=== PATIENT | female | born 1950 | race Caucasian/White ===

== ENCOUNTER → 2017-07-07 | Outpatient (CLI) | payer MEDICARE ==
--- NOTE | 2017-07-08 11:27 | MM ---
Reason for exam: screening (asymptomatic). Last mammogram was performed 1 year and 9 months ago. History: Patient is postmenopausal. Physical Findings: A clinical breast exam by your physician is recommended on an annual basis and results should be correlated with mammographic findings. MG 3D Screening Mammo W/Cad Bilateral CC and MLO view(s) were taken. Prior study comparison: October 16, 2015, bilateral MG screening mammo w CAD. July 25, 2014, bilateral MG screening mammo w CAD. The breast tissue is heterogeneously dense. This may lower the sensitivity of mammography. No suspicious abnormality. No significant changes when compared with prior studies. ASSESSMENT: Negative, BI-RAD 1 RECOMMENDATION: Routine screening mammogram of both breasts in 1 year.
== END | disposition home or self-care (01) ==
LOC: RADMAMWWP 10:34
PROVIDERS: ATTEND Internal Medicine
DX: Z12.31 Encounter for screening mammogram for malignant neoplasm of breast (principal)
CPT/HCPCS: 77063; G0202

== ENCOUNTER → 2018-07-13 | Outpatient (CLI) | payer MEDICARE ==
--- NOTE | 2018-07-15 14:31 | MM ---
Reason for exam: screening (asymptomatic). Last mammogram was performed 1 year ago. History: Patient is postmenopausal. Physical Findings: A clinical breast exam by your physician is recommended on an annual basis and results should be correlated with mammographic findings. MG 3D Screening Mammo W/Cad Bilateral CC and MLO view(s) were taken. Prior study comparison: July 07, 2017, bilateral MG 3d screening mammo w/cad. October 16, 2015, bilateral MG screening mammo w CAD. The breast tissue is heterogeneously dense. This may lower the sensitivity of mammography. No significant changes when compared with prior studies. ASSESSMENT: Negative, BI-RAD 1 RECOMMENDATION: Routine screening mammogram of both breasts in 1 year.
== END | disposition home or self-care (01) ==
LOC: RADMAMWWP 09:46
PROVIDERS: ATTEND Internal Medicine
DX: Z12.31 Encounter for screening mammogram for malignant neoplasm of breast (principal)
CPT/HCPCS: 77063; 77067

== ENCOUNTER 2019-02-15 07:57 | Day surgery (SDC) | payer MEDICARE ==
[2019-02-09 10:31] VITALS: BMI 30.4
[~2019-02-15 07:57] MED LIST: CYCLOPENTOLATE 1% OPHTH SOLN 2 ML BTL OP ONE; LACTATED RINGERS 1,000 ML IV SCH; MOXIFLOXACIN HCL 0.5% DROPS 3 ML BTL OP ONE; PHENYLEPHRINE 2.5% OPHTH DRP 2ML OP NR; TETRACAINE 0.5% OPHTH (PF) DROPS 4 ML BTL OP ONE; TIMOLOL 0.5% OPHTH DROPS 5 ML BTL OP ONE
[2019-02-15 09:31] VITALS: RESP 16; TEMP 98.2
[2019-02-15] MEDS ORDERED: LIDOCAINE 1% 20 ML VIAL (10MG/ML) FOR IV START SQ ONE (09:37)
[2019-02-15] MEDS ORDERED: fentaNYL (PF) 50 MCG/ML 2 ML AMP ONE (10:05)
[2019-02-15] MEDS ORDERED: MIDAZOLAM 2 MG/2 ML VIAL ONE (10:05)
[2019-02-15] MEDS ORDERED: DUOVISC KIT (GREEN BOX) INTRAOCULA ONE (10:12)
[2019-02-15] MEDS ORDERED: BALANCED SALT IRRIG SOLN COMB2 15 ML IRRIG.SOLN INTRAOCULA ONE (10:12)
[2019-02-15] MEDS ORDERED: TRYPAN BLUE 0.06% SYRINGE 0.5 ML SYRINGE INTRAOCULA ONE (10:12)
[2019-02-15] MEDS ORDERED: LIDOCAINE 1% (PF) 10MG/ML VIAL SQ ONE (10:13)
[2019-02-15] MEDS ORDERED: EPINEPHrine (PF) 0.3 ML in BALANCED SALT IRRIG SOLN COMB2 500 ML IRRIGATION ONE (10:13)
--- NOTE | 2019-02-15 10:48 | P.OP ---
Date of Procedure: 02/15/19 Preoperative Diagnosis: NS & CS & PSC & POAG moderate stage Postoperative Diagnosis: same Procedure(s) Performed: PIOL , OS & iStent implant OS Implants: PCB00 20.50 & iStent [id number] Anesthesia: MAC Surgeon: Jose G Aparicio Estimated Blood Loss (ml): 1 Pathology: none sent Condition: stable Disposition: same day Indications for Procedure: blurry vision and glaucoma Operative Findings: No complications
[2019-02-15 10:50] VITALS: PULSE 69
[2019-02-15 11:24] VITALS: BP 134/72
--- NOTE | 2019-02-15 13:11 | OP ---
OPERATIVE REPORT DATE OF SURGERY: 02/15/2019. PROCEDURE: Phacoemulsification of cataract and intraocular lens implant of the left eye with an eye stent implantation of the left eye. PREOPERATIVE DIAGNOSES: Nuclear sclerosis, cortical sclerosis, posterior subcapsular cataract, and primary open- angle glaucoma, moderate stage. POSTOPERATIVE DIAGNOSES: Nuclear sclerosis, cortical sclerosis, posterior subcapsular cataract, and primary open- angle glaucoma, moderate stage. SURGEON: Dr. Jose G Aparicio. ANESTHESIA: Topical. ESTIMATED BLOOD LOSS: Less than 5 mL. SPECIMEN TAKEN: None. NARRATIVE: After obtaining the appropriate consent, the patient was brought to the operating room. There she was placed under cardiac monitoring, prepped and draped in the usual sterile manner. She was approached from her left temporal side. At the 5 o'clock position, an MVR blade was used to create a paracentesis port. Through this opening 1% Xylocaine MPF 50/50 mix with balanced salt solution was injected into the anterior chamber. This was followed by placement of a small air bubble and then tri arce blue which was allowed to stain the anterior chamber tissues for approximately 1 minute. This was then irrigated away and Viscoat was used to stabilize the anterior chamber. At the 9 o'clock position, a 2.5 mm keratome was used to create a self-sealing corneal flap incision. The patient was then asked to rotate her head approximately 45 degrees to her right and maintain her gaze in that direction and prism was placed on the patient's eye. Trabecular meshwork was easily identified and an eye stent, device model TTS 100 L was placed across the anterior chamber and imbedded within the trabecular meshwork without difficulty. As expected, a small amount of blood was seen exiting from the snorkel of the device. The patient was then returned to the normal supine position and a cystotome was used to begin a continuous tear capsulorrhexis which was then completed using the Utrata forceps. Hydrodissection and hydrodelineation of the lens was accomplished with balanced salt solution. Phacoemulsification of the lens utilizing phaco chop was accomplished in 11.8 seconds with an EPT of 1.43. Once the lens was removed, Lidocaine MPF was instilled to provide additional anesthesia. This was followed by removal of the remaining cortex under irrigation and aspiration along with careful polishing of the posterior in the capsule vacuum mode. Care was taken to attempt to remove as much of the posterior subcapsular cataract as possible. However, this proved to be difficult at best and there remained a small amount in contact with the posterior capsule. Provisc was then used to stabilize the capsular bag and an YEIMY PCP 00 20.5 diopter posterior chamber intraocular lens was then instilled into the capsular bag without difficulty. The remaining viscoelastic was removed from in and around the lens as well as the anterior chamber. The eye was then brought to normal intraocular pressures through the paracentesis port and the incisions were confirmed watertight after a small amount of stromal hydration. She then received 2 drops of 0.5% timolol followed by 2 drops of moxifloxacin, was then lightly patched and shielded in the usual manner. There were no complications from the procedure. She tolerated the procedure well and was returned to outpatient recovery in good condition. NERI / LO: [id number] /
== END 2019-02-15 11:40 | disposition home or self-care (01) ==
LOC: OR 07:57
PROVIDERS: ATTEND Ophthalmology
DX: H25.813 Combined forms of age-related cataract, bilateral (principal); H35.3131 Nonexudative age-related macular degeneration, bilateral, early dry stage; H18.51 Endothelial corneal dystrophy; H25.042 Posterior subcapsular polar age-related cataract, left eye; H40.1131 Primary open-angle glaucoma, bilateral, mild stage; H52.03 Hypermetropia, bilateral; H52.4 Presbyopia; I10 Essential (primary) hypertension; Z79.899 Other long term (current) drug therapy; Z82.49 Family history of ischemic heart disease and other diseases of the circulatory system; Z83.518 Family history of other specified eye disorder; Z79.82 Long term (current) use of aspirin
CPT/HCPCS: 0191T; 66984

== ENCOUNTER 2019-03-01 07:14 | Day surgery (SDC) | payer MEDICARE ==
[2019-02-24 15:33] VITALS: BMI 30.4
[~2019-03-01 07:14] MED LIST changes: -CYCLOPENTOLATE 1% OPHTH SOLN 2 ML BTL OP ONE; +LIDOCAINE 1% 20 ML VIAL (10MG/ML) FOR IV START INTRADERMA PRN; +ONDANSETRON 4 MG/2 ML VIAL IVP ONE; -PHENYLEPHRINE 2.5% OPHTH DRP 2ML OP NR
[2019-03-01] MEDS: CYCLOPENTOLATE 1% OPHTH SOLN 2 ML BTL OP ONE ×2 (07:55→08:05)
[2019-03-01] MEDS: PHENYLEPHRINE 2.5% OPHTH DRP 2ML OP NR ×3 (08:00→08:16)
[2019-03-01 08:11] VITALS: RESP 16; TEMP 98.1
[2019-03-01] MEDS ORDERED: MIDAZOLAM 2 MG/2 ML VIAL ONE (08:35)
[2019-03-01] MEDS ORDERED: fentaNYL (PF) 50 MCG/ML 2 ML AMP ONE (08:35)
[2019-03-01] MEDS ORDERED: EPINEPHrine (PF) 0.3 ML in BALANCED SALT IRRIG SOLN COMB2 500 ML IRRIGATION ONE (08:53)
[2019-03-01] MEDS ORDERED: DUOVISC KIT (GREEN BOX) INTRAOCULA ONE (08:55)
[2019-03-01] MEDS ORDERED: BALANCED SALT IRRIG SOLN COMB2 15 ML IRRIG.SOLN IRRIGATION ONE (08:55)
[2019-03-01] MEDS ORDERED: TRYPAN BLUE 0.06% SYRINGE 0.5 ML SYRINGE INTRAOCULA ONE (08:56)
[2019-03-01] MEDS ORDERED: LIDOCAINE 1% (PF) 10MG/ML VIAL MISCELLANE ONE (08:56)
--- NOTE | 2019-03-01 09:14 | P.OP ---
Date of Procedure: 03/01/19 Preoperative Diagnosis: NS & CS & PSC & POAG Postoperative Diagnosis: same Procedure(s) Performed: PIOL & iStent implantation right eye Implants: PCB00 20.00 & iStent [id number] Anesthesia: MAC Surgeon: Jose G Aparicio Estimated Blood Loss (ml): 0 Pathology: none sent Condition: stable Disposition: same day Indications for Procedure: blurry vision & glaucoma control Operative Findings: No complications
[2019-03-01 09:47] VITALS: BP 124/80; PULSE 76
--- NOTE | 2019-03-01 18:35 | OP ---
OPERATIVE REPORT DATE OF SURGERY: March 01, 2019. PROCEDURE PERFORMED: Phacoemulsification of cataract and intraocular lens implant of the right eye with eye stent implantation, right eye. PREOPERATIVE DIAGNOSES: Nuclear sclerosis, cortical sclerosis, posterior subcapsular cataract, and primary open- angle glaucoma mild stage. POSTOPERATIVE DIAGNOSES: Nuclear sclerosis, cortical sclerosis, posterior subcapsular cataract, and primary open- angle glaucoma mild stage. SURGEON: Dr. Jose G Aparicio. ANESTHESIA: Topical. ESTIMATED BLOOD LOSS: None. SPECIMEN: Taken none. NARRATIVE: After obtaining the appropriate consent, the patient was brought to the operating room. There she was placed under cardiac monitoring, prepped and draped in the usual sterile manner. She was approached from her right temporal side and at the 11 o'clock position an MVR blade was used to create a paracentesis port. Through this opening, 1% Xylocaine MPF 50/50 mix with balanced salt solution was injected into the anterior chamber. This was followed by coloring the anterior chamber with trypan blue. Once this had stayed in the eye for approximately 1 minute, and was irrigated away, Viscoat was used to stabilize the anterior chamber. At the 9 o'clock position, a 2.5 mm keratome was used to create a self-sealing corneal flap incision in a Langerman's fashion. A small amount of Viscoat was placed on the patient's eye and the patient was asked to rotate her head to the left approximately 45 degrees to maintain a gaze in that particular direction. A gonio prism was placed on the patient's eye and an eye stent model [id number] was passed across the anterior chamber and the stent was implanted within the trabecular meshwork. Once this was accomplished, the patient was rotated to the normal supine position. A cystotome was then used to begin a continuous tear capsulorrhexis which was completed using the Utrata forceps. Hydrodissection and hydrodelineation of the lens was accomplished with balanced salt solution. Phacoemulsification of the lens utilizing phaco chop was accomplished and 15.59 seconds at 10% power. Additional Xylocaine MPF was instilled into the anterior chamber. This was followed by removal of the remaining cortex under irrigation aspiration along with careful polishing of the posterior capsule in capsule vacuum mode. Provisc was then used to stabilize the capsular bag and an YEIMY PCB00 20.0 diopter posterior chamber intraocular lens was then inserted into the capsular bag without difficulty. The remaining viscoelastic was then removed from in and around the intra-ocular lens as well as the anterior chamber under irrigation aspiration. The temporal incision was hydrated slightly with balanced salt solution and the eye was brought to normal intraocular pressures through the paracentesis port. She then received 2 drops of 0.5% timolol followed by 2 drops of moxifloxacin, was then lightly patched and shielded in the usual manner. There were no complications from the procedure. She tolerated the procedure well and returned to outpatient recovery in good condition. MMCESIA / IJN: [id number] / [place]
== END 2019-03-01 09:58 | disposition home or self-care (01) ==
LOC: OR 07:14
PROVIDERS: ATTEND Ophthalmology
DX: H25.11 Age-related nuclear cataract, right eye (principal); H25.011 Cortical age-related cataract, right eye; H40.1131 Primary open-angle glaucoma, bilateral, mild stage; H52.03 Hypermetropia, bilateral; H52.4 Presbyopia; H18.51 Endothelial corneal dystrophy; H35.3131 Nonexudative age-related macular degeneration, bilateral, early dry stage; Z98.42 Cataract extraction status, left eye; I10 Essential (primary) hypertension; Z90.49 Acquired absence of other specified parts of digestive tract; Z90.710 Acquired absence of both cervix and uterus; Z79.899 Other long term (current) drug therapy
CPT/HCPCS: 66984; C1780; C1783; J2250; J0171; J3010; J2001

== ENCOUNTER → 2019-08-08 | Outpatient (CLI) | payer MEDICARE ==
--- NOTE | 2019-08-09 09:38 | MM ---
Reason for exam: screening (asymptomatic). Last mammogram was performed 1 year and 1 month ago. History: Patient is postmenopausal. Physical Findings: A clinical breast exam by your physician is recommended on an annual basis and results should be correlated with mammographic findings. MG 3D Screening Mammo W/Cad Bilateral CC and MLO view(s) were taken. Prior study comparison: July 13, 2018, bilateral MG 3d screening mammo w/cad. July 07, 2017, bilateral MG 3d screening mammo w/cad. The breast tissue is heterogeneously dense. This may lower the sensitivity of mammography. Asymmetric breast tissue right upper quadrant stable from 2017. There is no discrete abnormality. ASSESSMENT: Benign, BI-RAD 2 RECOMMENDATION: Routine screening mammogram of both breasts in 1 year.
== END | disposition home or self-care (01) ==
LOC: RADMAMWWP 06:46
PROVIDERS: ATTEND Internal Medicine
DX: Z12.31 Encounter for screening mammogram for malignant neoplasm of breast (principal)
CPT/HCPCS: 77063; 77067

== ENCOUNTER → 2020-10-09 | Outpatient (CLI) | payer MEDICARE, OTHER ==
--- NOTE | 2020-10-11 09:08 | MM ---
Reason for exam: screening (asymptomatic). Last mammogram was performed 1 year and 2 months ago. History: Patient is postmenopausal. Physical Findings: A clinical breast exam by your physician is recommended on an annual basis and results should be correlated with mammographic findings. MG 3D Screening Mammo W/Cad Bilateral CC and MLO view(s) were taken. Prior study comparison: August 08, 2019, bilateral MG 3d screening mammo w/cad. July 13, 2018, bilateral MG 3d screening mammo w/cad. The breast tissue is heterogeneously dense. This may lower the sensitivity of mammography. There is no discrete abnormality. Benign bilateral axillary lymph nodes redemonstrated. ASSESSMENT: Negative, BI-RAD 1 RECOMMENDATION: Routine screening mammogram of both breasts in 1 year.
== END | disposition home or self-care (01) ==
LOC: RADMAMWWP 07:02
PROVIDERS: ATTEND Family Medicine
DX: Z12.31 Encounter for screening mammogram for malignant neoplasm of breast (principal)
CPT/HCPCS: 77063; 77067

== ENCOUNTER → 2022-01-13 | Outpatient (CLI) | payer MEDICARE, OTHER ==
--- NOTE | 2022-01-13 19:12 | BD ---
EXAMINATION TYPE: Axial Bone Density DATE OF EXAM: 01/13/2022 COMPARISON: 2001 CLINICAL HISTORY: age related osteoporosis Height: 5'4 11/09 Weight: 172 FRAX RISK QUESTIONS: History of Fracture in Adulthood: y Secondary Osteoporosis: RISK FACTORS HISTORY OF: Postmenopausal woman: y MEDICATIONS: Additional Medications: blood pressure Additional History: EXAM MEASUREMENTS: Bone mineral densitometry was performed using the [employer]. Bone mineral density as measured about the Lumbar spine is: ----- L1-L4(G/cm2): 1.292 T Score Values are as follows: ----- L2: 0.5 ----- L3: 1.2 ----- L4:1.4 ----- L1-L4: 1.0 Bone mineral density has: Increased 1.2% since study of: 09/22/2002 Bone mineral density about the R hip (g/cm2): 0.821 Bone mineral density about the L hip (g/cm2): 0.843 T Score values are as follows: -----R Neck: -1.6 -----L Neck: -1.4 -----R Total: -0.8 -----L Total: -0.7 Bone mineral density has: Decreased -4.7% since study of: 09/22/2002 IMPRESSION: Osteopenia (T Score between -2.5 and -1). There is slightly increased risk of fracture and the patient may be considered for treatment. Re-Screen 2-5 years. NOTE: T-SCORE=SD OF THE YOUNG ADULT MEAN.
--- NOTE | 2022-01-15 11:13 | MM ---
Reason for exam: screening (asymptomatic). Last mammogram was performed 1 year and 3 months ago. History: Patient is postmenopausal. Physical Findings: A clinical breast exam by your physician is recommended on an annual basis and results should be correlated with mammographic findings. MG 3D Screening Mammo W/Cad Bilateral CC and MLO view(s) were taken. Prior study comparison: October 09, 2020, bilateral MG 3d screening mammo w/cad. August 08, 2019, bilateral MG 3d screening mammo w/cad. The breast tissue is heterogeneously dense. This may lower the sensitivity of mammography. No significant changes when compared with prior studies. ASSESSMENT: Negative, BI-RAD 1 RECOMMENDATION: Routine screening mammogram of both breasts in 1 year.
== END | disposition home or self-care (01) ==
LOC: RADBDWWP 07:58
PROVIDERS: ATTEND Internal Medicine Geriatric Medicine
DX: Z12.31 Encounter for screening mammogram for malignant neoplasm of breast (principal); M85.89 Other specified disorders of bone density and structure, multiple sites; Z78.0 Asymptomatic menopausal state
CPT/HCPCS: 77063; 77067; 77080

== ENCOUNTER → 2023-02-01 | Outpatient (CLI) | payer MEDICARE ==
--- NOTE | 2023-02-01 10:46 | MM ---
Reason for Exam: Screening (asymptomatic). Last screening mammogram was performed 12 month(s) ago. Patient History: Menarche at age 12. First Full-Term at age 25. Hysterectomy at age 65. Postmenopausal. Risk Values: Mendy 5 year model risk: 2.0%. NCI Lifetime model risk: 4.8%. Prior Study Comparison: 08/08/2019 Bilateral Screening Mammogram, [facility]. 10/09/2020 Bilateral Screening Mammogram, [facility]. 01/13/2022 Bilateral Screening Mammogram, [facility]. Tissue Density: The breast tissue is heterogeneously dense. This may lower the sensitivity of mammography. Findings: Analyzed By CAD. Benign appearing bilateral axillary lymph nodes are redemonstrated. There is no suspicious group of microcalcifications or new suspicious mass in either breast. Overall Assessment: Negative, BI-RAD 1 Management: Screening Mammogram of both breasts in 1 year. A clinical breast exam by your physician is recommended on an annual basis and results should be correlated with mammographic findings. Electronically signed and approved by: Gerald Magaña M.D.
== END | disposition home or self-care (01) ==
LOC: RADMAMWWP 07:51
PROVIDERS: ATTEND Internal Medicine Geriatric Medicine
DX: Z12.31 Encounter for screening mammogram for malignant neoplasm of breast (principal); Z78.0 Asymptomatic menopausal state
CPT/HCPCS: 77063; 77067

== ENCOUNTER 2023-04-19 09:15 | Observation (INO) | payer MEDICARE ==
--- NOTE | 2023-04-19 11:13 | XR ---
EXAMINATION TYPE: XR chest 2V DATE OF EXAM: 04/19/2023 COMPARISON: None INDICATION: Dysrhythmia and abnormal EKG TECHNIQUE: Frontal and lateral views of the chest are obtained. FINDINGS: The heart size is normal. The pulmonary vasculature is normal. The lungs are clear. Focal eventration of the right diaphragm is noted. There is a scoliosis present with the convexity to the right. IMPRESSION: 1. No acute pulmonary process.
--- NOTE | 2023-04-19 11:15 | ED ---
Arrhythmia/Palpitations HPI - General Chief Complaint: Arrhythmia/Palpitations Stated Complaint: abn EKG,Sent by PCP Time Seen by Provider: 04/19/23 10:56 Source: patient Mode of arrival: ambulatory Limitations: no limitations - History of Present Illness Initial Comments: A 2-year-old female with a past medical history significant for hypertension presents to the ED via her PCP due to chief complaint arrhythmia. Patient states that she was her doctor's office for a regular checkup and she notes that EKG performed there was irregular and she was advised to present to the ED for further evaluation. At that time patient states that she felt palpitations and noted that her heart felt like it was beating irregularly. States she notes history of this but notes that it usually goes away on its own. denies chest pain or shortness of breath. Denies recent illness. EKG at her PCPs office showed atrial flutter at a rate of 166. At time of evaluation patient is sinus at 92 bpm. Denies history of hemorrhagic stroke. Denies history of GI bleed. No other complaints - Related Data Home Medications Medication Instructions Recorded Confirmed amLODIPine [Norvasc] 5 mg PO DAILY 02/09/19 04/19/23 Latanoprost [Latanoprost 0.005%] 1 drop LEFT EYE HS 04/19/23 04/19/23 Allergies Allergy/AdvReac Type Severity Reaction Status Date / Time No Known Allergies Allergy Verified 04/19/23 11:38 Review of Systems ROS Statement: Those systems with pertinent positive or pertinent negative responses have been documented in the HPI. ROS Other: All systems not noted in ROS Statement are negative. Past Medical History Past Medical History: Eye Disorder, Hypertension Additional Past Medical History / Comment(s): GLAUCOMA, CATARACTS, MAC DEGENERATION, suzy eye fuchs dystophy History of Any Multi-Drug Resistant Organisms: None Reported Past Surgical History: Bladder Surgery, Cholecystectomy, Hysterectomy, Orthopedic Surgery Additional Past Surgical History / Comment(s): MULT RT FOOT SX, LEFT FOOT SECOND TOE AMPUTATED, Past Anesthesia/Blood Transfusion Reactions: No Reported Reaction Past Psychological History: No Psychological Hx Reported Smoking Status: Never smoker Past Alcohol Use History: Occasional Past Drug Use History: None Reported - Past Family History Mother Family Medical History: No Reported History General Exam Limitations: no limitations Course Vital Signs 04/19/23 09:28 Temperature 98 F Pulse Rate 98 Respiratory 22 Rate Blood Pressure 157/94 O2 Sat by Pulse 96 Oximetry - Reevaluation(s) Reevaluation #1: 04/19/23 11:[address] Hoffmann, who would like the patient admittent to observation with cardiology consult 04/19/23 11:37 Medical Decision Making - Medical Decision Making Was pt. sent in by a medical professional or institution (, PA, METAL [employer]FFER, urgent care, hospital, or [place] health [facility] facility...) When possible be specific @ -PCP Dr. Hoffmann Did you speak to anyone other than the patient for history (EMS, parent, family, police, friend...)? What history was obtained from this source @ -No Did you review nursing and triage notes (agree or disagree)? Why? @ -I reviewed and agree with nursing and triage notes Were old charts reviewed (outside hosp., previous admission, EMS record, old EKG, old radiological studies, urgent care reports/EKG's, [place] health care facility records)? Report findings @ -Old charts reviewed showing history of hypertension glaucoma. Differential Diagnosis (chest pain, altered mental status, abdominal pain women, abdominal pain men, vaginal bleeding, weakness, fever, dyspnea, syncope, headache, dizziness, GI bleed, back pain, seizure, CVA, palpatations, mental health, musculoskeletal)? @ -Differential Chest Pain: Stable Angina, Unstable Angina, STEMI, NSTEMI Aortic Dissection, Pneumothorax, Musculoskeletal, Esophageal Spasm GERD, Cholecystitis, Pancreatitis, Zoster, this is not meant to be an all-inclusive list. EKG interpreted by me (3pts min.). @ -EKG at 9:30 shows a sinus rhythm at [address]pm with no acute ST or T-wave changes. There is an AV block MA interval at 211 ms. QRS 74, QT/QTc 322/382. Repeat EKG at 11:12 shows a sinus rhythm again with first-degree AV block with MA interval at 210 ms. 7 1 bpm, QRS 82, QT/QTc 370/392. X-rays interpreted by me (1pt min.). @ -X-ray showed no acute process CT interpreted by me (1pt min.). @ -None done U/S interpreted by me (1pt. min.). @ -None done What testing was considered but not performed or refused? (CT, X-rays, U/S, labs)? Why? @ -None What meds were considered but not given or refused? Why? @ -None Did you discuss the management of the patient with other professionals (professionals i.e. , PA, METAL BUFFER, lab, RT, psych nurse, social worker clinical, production control specialist, teacher, animal park code enforcement officer, case resource manager)? Give summary @ -Spoke to Dr. Hoffmann who would like the patient admitted to observation with consult to cardiology. Was smoking cessation discussed for >3mins.? @ -No Was critical care preformed (if so, how long)? @ -No Were there social determinants of health that impacted care today? How? (Homelessness, low income, unemployed, alcoholism, drug addiction, transportation, low edu. Level, literacy, decrease access to med. care, snf, rehab)? @ -No Was there de-escalation of care discussed even if they declined (Discuss DNR or withdrawal of care, Hospice)? DNR status @ -No What co-morbidities impacted this encounter? (DM, HTN, Smoking, COPD, CAD, Cancer, CVA, ARF, Chemo, Hep., AIDS, mental health diagnosis, sleep apnea, morbid obesity)? @ -Hypertension Was patient admitted / discharged? Hospital course, mention meds given and route, prescriptions, significant lab abnormalities, going to OR and other pertinent info. @ -Admitted. EKGs as above. CBC unremarkable, other labs pending. Chest x- ray as above. Upon arrival patient converted back into sinus rhythm and did not need rate or rhythm control while in the ED. She was started on heparin. Patient to be admitted to observation with consult to cardiology. Undiagnosed new problem with uncertain prognosis? @ -No Drug Therapy requiring intensive monitoring for toxicity (Heparin, Nitro, Insulin, Cardizem)? @ -Yes, heparin Were any procedures done? @ -No Diagnosis/symptom? @ -Atrial flutter Acute, or Chronic, or Acute on Chronic? @ -Acute Uncomplicated (without systemic symptoms) or Complicated (systemic symptoms)? @ -Uncomplicated Side effects of treatment? @ -No Exacerbation, Progression, or Severe Exacerbation? @ -No Poses a threat to life or bodily function? How? (Chest pain, USA, CT, pneumonia, PE, COPD, DKA, ARF, appy, cholecystitis, CVA, Diverticulitis, Homicidal, Suicidal, threat to staff... and all critical care pts) @ -Yes, atrial flutter - Lab Data Result diagrams: 04/19/23 11:03 04/19/23 11:03 Lab Results 04/19/23 04/19/23 04/19/23 Range/Units 11:03 11:03 11:03 WBC 6.8 (3.8-10.6) k/uL RBC 4.50 (3.80-5.40) m/uL Hgb 13.5 (11.4-16.0) gm/dL Hct 41.0 (34.0-46.0) % MCV 91.1 (80.0-100.0) fL MCH 30.0 (25.0-35.0) pg MCHC 32.9 (31.0-37.0) g/dL RDW 13.9 (11.5-15.5) % Plt Count 236 (150-450) k/uL MPV 7.9 Neutrophils % 74 % Lymphocytes % 18 % Monocytes % 6 % Eosinophils % 1 % Basophils % 0 % Neutrophils # 5.0 (1.3-7.7) k/uL Lymphocytes # 1.2 (1.0-4.8) k/uL Monocytes # 0.4 (0-1.0) k/uL Eosinophils # 0.0 (0-0.7) k/uL Basophils # 0.0 (0-0.2) k/uL PT 10.1 (9.0-12.0) sec INR 1.0 (<1.2) APTT 23.5 (22.0-30.0) sec Sodium 136 L (137-145) mmol/L Potassium 4.7 (3.5-5.1) mmol/L Chloride 104 (98-107) mmol/L Carbon Dioxide 23 (22-30) mmol/L Anion Gap 9 mmol/L BUN 14 (7-17) mg/dL Creatinine 0.50 L (0.52-1.04) mg/dL Est GFR (CKD-EPI)AfAm >90 (>60 ml/min/1.73 sqM) Est GFR (CKD-EPI)NonAf >90 (>60 ml/min/1.73 sqM) Glucose 104 H (74-99) mg/dL Calcium 9.8 (8.4-10.2) mg/dL Magnesium 2.3 (1.6-2.3) mg/dL Total Bilirubin 0.4 (0.2-1.3) mg/dL AST 34 (14-36) U/L ALT 37 H (4-34) U/L Alkaline Phosphatase 224 H (38-126) U/L Troponin I (0.000-0.034) ng/mL Total Protein 7.2 (6.3-8.2) g/dL Albumin 4.2 (3.5-5.0) g/dL TSH 2.310 (0.465-4.680) mIU/L 04/19/23 Range/Units 11:03 WBC (3.8-10.6) k/uL RBC (3.80-5.40) m/uL Hgb (11.4-16.0) gm/dL Hct (34.0-46.0) % MCV (80.0-100.0) fL MCH (25.0-35.0) pg MCHC (31.0-37.0) g/dL RDW (11.5-15.5) % Plt Count (150-450) k/uL MPV Neutrophils % % Lymphocytes % % Monocytes % % Eosinophils % % Basophils % % Neutrophils # (1.3-7.7) k/uL Lymphocytes # (1.0-4.8) k/uL Monocytes # (0-1.0) k/uL Eosinophils # (0-0.7) k/uL Basophils # (0-0.2) k/uL PT (9.0-12.0) sec INR (<1.2) APTT (22.0-30.0) sec Sodium (137-145) mmol/L Potassium (3.5-5.1) mmol/L Chloride (98-107) mmol/L Carbon Dioxide (22-30) mmol/L Anion Gap mmol/L BUN (7-17) mg/dL Creatinine (0.52-1.04) mg/dL Est GFR (CKD-EPI)AfAm (>60 ml/min/1.73 sqM) Est GFR (CKD-EPI)NonAf (>60 ml/min/1.73 sqM) Glucose (74-99) mg/dL Calcium (8.4-10.2) mg/dL Magnesium (1.6-2.3) mg/dL Total Bilirubin (0.2-1.3) mg/dL AST (14-36) U/L ALT (4-34) U/L Alkaline Phosphatase (38-126) U/L Troponin I <0.012 (0.000-0.034) ng/mL Total Protein (6.3-8.2) g/dL Albumin (3.5-5.0) g/dL TSH (0.465-4.680) mIU/L Disposition Clinical Impression: Atrial flutter Disposition: ADMITTED IP TO THIS HOSP Referrals: Tejas Hoffmann MD [Primary Care Provider] - 1-2 days Time of Disposition: 11:32
[2023-04-19 11:16] LABS: Basophils % (A) 0 %; Eosinophils % (A) 1 %; HGB 13.5 gm/dL (11.4-16.0); Lymphocytes # (A) 1.2 k/uL (1.0-4.8); Lymphocytes % (A) 18 %; MCHC 32.9 g/dL (31.0-37.0); MCV 91.1 fL (80.0-100.0); Mean Platelet Volume 7.9; Monocytes # (A) 0.4 k/uL (0-1.0); Monocytes % (A) 6 %; Neutrophils % (A) 74 %; Platelet Count 236 k/uL (150-450); RDW 13.9 % (11.5-15.5); WBC 6.8 k/uL (3.8-10.6)
[2023-04-19 11:36] LABS: Partial Thromboplastin Time 23.5 sec (22.0-30.0); Prothrombin Time 10.1 sec (9.0-12.0)
[2023-04-19 11:51] LABS: ALT 37 U/L (4-34); AST 34 U/L (14-36); African American GFR (CKD) >90 (>60 ml/min/1.73 sqM); Albumin 4.2 g/dL (3.5-5.0); Alkaline Phosphatase 224 U/L (38-126); Anion Gap 9 mmol/L; Blood Urea Nitrogen 14 mg/dL (7-17); Calcium 9.8 mg/dL (8.4-10.2); Carbon Dioxide 23 mmol/L (22-30); Chloride 104 mmol/L (98-107); Glucose 104 mg/dL (74-99); Magnesium 2.3 mg/dL (1.6-2.3); Non-African American GFR(CKD) >90 (>60 ml/min/1.73 sqM); Potassium 4.7 mmol/L (3.5-5.1); Sodium 136 mmol/L (137-145); Total Bilirubin 0.4 mg/dL (0.2-1.3); Total Protein 7.2 g/dL (6.3-8.2)
[2023-04-19] MEDS ORDERED: HEPARIN SODIUM 1,000 UN/ML (10ML VL) IV ONE (12:03)
[2023-04-19] MEDS ORDERED: HEPARIN SODIUM 1,000 UN/ML (10ML VL) IV PRN (12:03)
[2023-04-19] MEDS ORDERED: HEPARIN SOD,PORK IN 0.45% NACL 25,000 UNIT in 0.45% NACL 1 250ML.BAG IV SCH (12:15)
[2023-04-19] MEDS ORDERED: NALOXONE 0.4 MG/ML 1 ML VIAL IV PRN (12:43)
--- NOTE | 2023-04-19 14:23 | P.HPIM ---
History of Present Illness 72-year-old female with known history of hypertension was sent in here because of possibly of atrial fibrillation. Patient is found to be in atrial flutter here EKG showed heart rate of 166 at PCPs office. Patient was having on and off for episodes of palpitations which resolved by themselves. Patient here had atrial flutter followed by sinus rhythm spontaneously converted. Patient denied any symptoms at this time all the workup is within normal limits. And TSH is within normal limits chest x-ray did not show any significant abnormality. REVIEW OF SYSTEMS: CONSTITUTIONAL: No fever, no malaise, no fatigue. HEENT: No recent visual problems or hearing problems. Denied any sore throat. CARDIOVASCULAR: No chest pain, orthopnea, PND, no syncope. PULMONARY: No shortness of breath, no cough, no hemoptysis. GASTROINTESTINAL: No diarrhea, no nausea, no vomiting, no abdominal pain. NEUROLOGICAL: No headaches, no weakness, no numbness. HEMATOLOGICAL: Denies any bleeding or petechiae. GENITOURINARY: Denies any burning micturition, frequency, or urgency. MUSCULOSKELETAL/RHEUMATOLOGICAL: Denies any joint pain, swelling, or any muscle pain. ENDOCRINE: Denies any polyuria or polydipsia. The rest of the 14-point review of systems is negative. PHYSICAL EXAMINATION: GENERAL: The patient is alert and oriented x3, not in any acute distress. Well developed, well nourished. HEENT: Pupils are round and equally reacting to light. EOMI. No scleral icterus. No conjunctival pallor. Normocephalic, atraumatic. No pharyngeal erythema. No thyromegaly. CARDIOVASCULAR: S1 and S2 present. No murmurs, rubs, or gallops. PULMONARY: Chest is clear to auscultation, no wheezing or crackles. ABDOMEN: Soft, nontender, nondistended, normoactive bowel sounds. No palpable organomegaly. MUSCULOSKELETAL: No joint swelling or deformity. EXTREMITIES: No cyanosis, clubbing, or pedal edema. NEUROLOGICAL: Gross neurological examination did not reveal any focal deficits. SKIN: No rashes. Assessment and plan -Atrial flutter, may be A. fib with rapid ventricular rate although no documented episodes during this hospitalization patient is presently on anticoagulation awaiting cardiology evaluation patient will be started on 25 mg twice a day of metoprolol to prevent A. fib/flutter episodes. Echocardiogram will be ordered -Hypertension: Patient will be started on beta karley because of which are temporally hold off amlodipine and monitor the blood pressure DVT prophylaxis: On anticoagulation as mentioned above Past Medical History Past Medical History: Eye Disorder, Hypertension Additional Past Medical History / Comment(s): GLAUCOMA, CATARACTS, MAC DEGENERATION, suzy eye fuchs dystophy History of Any Multi-Drug Resistant Organisms: None Reported Past Surgical History: Bladder Surgery, Cholecystectomy, Hysterectomy, Orthopedic Surgery Additional Past Surgical History / Comment(s): MULT RT FOOT SX, LEFT FOOT SECOND TOE AMPUTATED, Past Anesthesia/Blood Transfusion Reactions: No Reported Reaction Past Psychological History: No Psychological Hx Reported Smoking Status: Never smoker Past Alcohol Use History: Occasional Past Drug Use History: None Reported - Past Family History Mother Family Medical History: No Reported History Medications and Allergies Home Medications Medication Instructions Recorded Confirmed Type amLODIPine [Norvasc] 5 mg PO DAILY 02/09/19 04/19/23 History Latanoprost [Latanoprost 0.005%] 1 drop LEFT EYE HS 04/19/23 04/19/23 History Allergies Allergy/AdvReac Type Severity Reaction Status Date / Time No Known Allergies Allergy Verified 04/19/23 11:38 Physical Exam Vitals: Vital Signs Temp Pulse Resp BP Pulse Ox 04/19/23 09:28 98 F 98 22 157/94 96 Intake and Output 04/18/23 04/19/23 04/19/23 22:59 06:59 14:59 Other: Weight 81.193 kg Results CBC & Chem 7: 04/19/23 11:03 04/19/23 11:03 Labs: Abnormal Lab Results - Last 24 Hours (Table) 04/19/23 Range/Units 11:03 Sodium 136 L (137-145) mmol/L Creatinine 0.50 L (0.52-1.04) mg/dL Glucose 104 H (74-99) mg/dL ALT 37 H (4-34) U/L Alkaline Phosphatase 224 H (38-126) U/L
[2023-04-19] MEDS: METOPROLOL TARTRATE 25 MG TAB PO SCH (20:33)
[2023-04-19] MEDS ORDERED: LATANOPROST 0.005% OPHTH DROPS 2.5 ML BTL LEFT EYE SCH (21:00)
[2023-04-20 04:50] LABS: Basophils % (A) 0 %; Eosinophils # (A) 0.1 k/uL (0-0.7); Eosinophils % (A) 2 %; HCT 41.8 % (34.0-46.0); HGB 13.2 gm/dL (11.4-16.0); Lymphocytes # (A) 2.3 k/uL (1.0-4.8); Lymphocytes % (A) 42 %; MCH 29.3 pg (25.0-35.0); MCHC 31.6 g/dL (31.0-37.0); MCV 92.7 fL (80.0-100.0); Mean Platelet Volume 7.9; Monocytes # (A) 0.3 k/uL (0-1.0); Monocytes % (A) 6 %; Neutrophils # (A) 2.6 k/uL (1.3-7.7); Neutrophils % (A) 48 %; Platelet Count 214 k/uL (150-450); RBC 4.51 m/uL (3.80-5.40); WBC 5.4 k/uL (3.8-10.6)
[2023-04-20 05:03] LABS: INR 1.1 (<1.2); Prothrombin Time 11.1 sec (9.0-12.0)
[2023-04-20] MEDS: METOPROLOL TARTRATE 25 MG TAB PO SCH (09:00)
[2023-04-20] MEDS ORDERED: APIXABAN 5 MG TAB PO SCH (09:00)
[2023-04-20] MEDS ORDERED: amLODIPine 5 MG TAB PO SCH (09:00)
--- NOTE | 2023-04-20 10:43 | P.CRDCN ---
History of Present Illness Consult date: 04/20/23 Reason for Consult (text): Atrial flutter History of present illness: History of present illness: This is a 72-year-old female patient with no previous cardiac history. Patient does not follow with a dolly pusher, no previous cardiac catheterization. She had a stress test done many years ago. She has a past medical history of hypertension. Patient states that she came in the hospital due to her heart racing. She has had episodes of this on and off for many years. It usually lasts about 10-15 minutes. She denies having any other symptoms with this, no lightheadedness or dizziness, no chest pain, no syncopal episodes, no shortness of breath. She also denies having any cough or sputum production and no fever or chills. She states she's had these episodes but has never mentioned it to her physician. She was at her PCP office yesterday and due to abnormal EKG, she was instructed to come in the hospital for further evaluation. Patient does drink a couple coffees per day. No alcohol use. No history of smoking. Patient has been started on a heparin drip and she is seen today in the emergency center waiting for a bed on the observation unit. Patient is asymptomatic at the time of evaluation. EKG from Dr. Hoffmann's office is atrial fibrillation at 160 bpm, repeat EKG sinus rhythm 2, telemetry sinus rhythm Chest x-ray: No acute pulmonary process. CBC is unremarkable. INR 1.1. Sodium 136, potassium 4.7, chloride 104, CO2 23, BUN 14 creatinine 0.5. Blood sugar 104. AST 34, ALT 37, alkaline phosphatase 224. Troponin negative 1. TSH 2.310. Blood sugar 104. Home cardiac medications: Amlodipine 5 mg daily Review Of Systems: At the time of my evaluation: Constitutional: No fever, no chills. No weakness, fatigue or lethargy. EENT: No headache. No dizziness. Lungs: No shortness of breath, cough, no sputum production. No wheezing. Cardiovascular: No chest pain, no lower extremity edema. No palpitations. No paroxysmal nocturnal dyspnea. No orthopnea. No lightheadedness or dizziness. No syncopal episodes. Abdominal: No abdominal pain. No nausea, vomiting. No diarrhea. No constipation. No bloody or tarry stools. Genitourinary: No dysuria.. No urinary retention. Musculoskeletal: No myalgias. No muscle weakness, no frequent falls. No back pain. No neck pain. Integumentary: No wounds. No rash. No unusual bruising. Neurologic: No aphasia. No facial droop. No change in mentation. No head injury. No headache. Physical examination: Gen: This is a 72-year-old female. She is resting in a chair and in the emergency center appears to be comfortable and in no acute distress. VS: reviewed HEENT: Head is atraumatic, normocephalic. Pupils equal, round. Sclerae is anicteric. NECK: Supple. No JVD. . LUNGS: Clear to auscultation. No wheezes or rhonchi. No intercostal ret ractions. HEART: Regular rate and rhythm. Systolic murmur. ABDOMEN: Soft No tenderness. EXTREMITIES: No pedal edema. No calf tenderness. NEUROLOGICAL: Patient is awake, alert and oriented x3. Assessment: Paroxysmal atrial fibrillation presenting with RVR Hypertension Plan: Discontinue heparin drip and start patient on eliquis 5 mg twice daily Continue Lopressor 25 mg twice daily Obtain 2-D echocardiogram and Doppler study to assess cardiac structure and function Increase patient's activity and ambulate. The patient is asymptomatic with ambulation and does not convert back to atrial fibrillation and echocardiogram is unremarkable, patient is cleared for discharge from cardiology and may follow-up in the office with Dr. Garay in 1 week. Further recommendations to follow based upon clinical course Thank you kindly for this consultation. Nurse practitioner note has been reviewed, I agree with documented findings and plan of care. Patient was seen and examined. Past Medical History Past Medical History: Eye Disorder, Hypertension Additional Past Medical History / Comment(s): GLAUCOMA, CATARACTS, MAC DEGENERAT ION, suzy eye fuchs dystophy History of Any Multi-Drug Resistant Organisms: None Reported Past Surgical History: Bladder Surgery, Cholecystectomy, Hysterectomy, Orthopedic Surgery Additional Past Surgical History / Comment(s): MULT RT FOOT SX, LEFT FOOT SECOND TOE AMPUTATED, Past Anesthesia/Blood Transfusion Reactions: No Reported Reaction Past Psychological History: No Psychological Hx Reported Smoking Status: Never smoker Past Alcohol Use History: Occasional Past Drug Use History: None Reported - Past Family History Mother Family Medical History: No Reported History Medications and Allergies Home Medications Medication Instructions Recorded Confirmed Type amLODIPine [Norvasc] 5 mg PO DAILY 02/09/19 04/19/23 History Latanoprost [Latanoprost 0.005%] 1 drop LEFT EYE HS 04/19/23 04/19/23 History Allergies Allergy/AdvReac Type Severity Reaction Status Date / Time No Known Allergies Allergy Verified 04/19/23 11:38 Physical Exam Vitals: Vital Signs Temp Pulse Resp BP Pulse Ox 04/20/23 04:00 59 L 16 132/81 96 04/20/23 00:00 84 18 142/82 96 04/19/23 20:33 77 18 129/76 97 04/19/23 18:10 98 F 73 18 120/78 95 04/19/23 15:59 97.8 F 73 19 131/88 92 L 04/19/23 09:28 98 F 98 22 157/94 96 Results 04/20/23 04:30 04/19/23 11:03 Cardiac Enzymes 04/19/23 04/19/23 Range/Units 11:03 11:03 AST 34 (14-36) U/L Troponin I <0.012 (0.000-0.034) ng/mL Coagulation 04/19/23 04/19/23 04/20/23 Range/Units 11:03 17:37 04:30 PT 10.1 11.1 (9.0-12.0) sec APTT 23.5 52.3 H (22.0-30.0) sec CBC 04/19/23 04/20/23 Range/Units 11:03 04:30 WBC 6.8 5.4 (3.8-10.6) k/uL RBC 4.50 4.51 (3.80-5.40) m/uL Hgb 13.5 13.2 (11.4-16.0) gm/dL Hct 41.0 41.8 (34.0-46.0) % Plt Count 236 214 (150-450) k/uL Comprehensive Metabolic Panel 04/19/23 Range/Units 11:03 Sodium 136 L (137-145) mmol/L Potassium 4.7 (3.5-5.1) mmol/L Chloride 104 (98-107) mmol/L Carbon Dioxide 23 (22-30) mmol/L BUN 14 (7-17) mg/dL Creatinine 0.50 L (0.52-1.04) mg/dL Glucose 104 H (74-99) mg/dL Calcium 9.8 (8.4-10.2) mg/dL AST 34 (14-36) U/L ALT 37 H (4-34) U/L Alkaline Phosphatase 224 H (38-126) U/L Total Protein 7.2 (6.3-8.2) g/dL Albumin 4.2 (3.5-5.0) g/dL Current Medications Generic Name Dose Route Start Last Admin Trade Name Freq PRN Reason Stop Dose Admin Apixaban 5 mg 04/20/23 09:00 Apixaban 5 Mg Tab PO BID [facility] Protocol Latanoprost 1 drops 04/19/23 21:00 04/19/23 20:32 Latanoprost 0.005% Ophth Drops 2.5 Ml Btl LEFT EYE 1 drops HS SIVA Administration Metoprolol Tartrate 25 mg 04/19/23 21:00 04/19/23 20:33 Metoprolol Tartrate 25 Mg Tab PO Not Given BID [facility] Naloxone HCl 0.2 mg 04/19/23 12:43 Naloxone 0.4 Mg/Ml 1 Ml Vial IV Q2M PRN Opioid Reversal 04/20/23 04:30 04/19/23 11:03
[2023-04-20] MEDS: FAMOTIDINE 20 MG TAB PO SCH (12:34)
[2023-04-20 13:35] VITALS: BP 130/73; PULSE 64; RESP 18; TEMP 97.4
--- NOTE | 2023-04-20 23:24 | P.DS ---
Providers Date of admission: 04/19/23 12:43 Attending physician: Carlos Yanes Consults: 04/19/23 12:43 Consult Physician Urgent Consulting Provider: Alba Verdugo Consult Reason/Comments: new a-flutter Do you want consulting provider notified?: Yes Primary care physician: Tejas Hoffmann [facility] Course: Final Diagnosis -Palpitations -Atrial flutter, new onset -Hypertension -Elevated alk phos Discharge Disposition Patient is stable for discharge home. Patient has been started on eliquis 5 mg BID, patient does have copay of 505$ to be met and after copay eliquis will be 25$ per month., patient was provided with free 30 day coupon and patient plans to pay the deductible and continue on eliquis. Patient to follow up with PCP Dr. Tejas Hoffmann in 1 to 2 days. Follow up with Dr. Garay in 1 to 2 weeks. Hospital Course This is a pleasant 72 year old female with medical history of hypertension, eye disorder. Patient presents to the hospital sent in from primary care office due to EKG findings of atrial flutter with heart rate in the 160s. Patient was having palpitations also. Denying chest pain, denying shortness of breath. No dizziness or lightheadedness. Patient now converted to normal sinus rhythm. TSH is within normal limits at 2.310. ALT elevated at 37, alk phos at 224. Patient has unremarkable blood count panel. Chest xray reveals no acute cardiopulmonary process. Patient was admitted in observation and cardiology was consulted. Started on IV heparin and has been transitioned to eliquis. Started on metoprolol 25 mg BID and recommended to continue on amlodipine and monitor blood pressure at home. Patient had an echocardiogram completed, cleared by cardiology to to follow up in the office on discharge for report. Lungs are clear, S1 S2 auscultated alert x 3 focal neurological exam is negative. Patient will be discharged home with the above mentioned follow up. Please see medication reconciliation for a list of current medications. Thank you for allowing us to participate in the care of this patient. The impression and plan of care has been dictated by Aydee Brunson, Nurse Practitioner as directed. Dr. Farzana MD I have performed a history and physical examination and medical decision making of this patient, discussed the same with the dictator, and agree with the dictators assessment and plan as written, documented as a scribe. Based on total visit time, I have performed more than 50% of this visit. Patient Condition at Discharge: Stable Plan - Discharge Summary New Discharge Prescriptions: New Apixaban [Eliquis] 5 mg PO BID #60 tab Metoprolol Tartrate [Lopressor] 25 mg PO BID #60 tab Famotidine [Pepcid] 20 mg PO BID #60 tab Continue amLODIPine [Norvasc] 5 mg PO DAILY Latanoprost [Latanoprost 0.005%] 1 drop LEFT EYE HS Discharge Medication List amLODIPine [Norvasc] 5 mg PO DAILY 02/09/19 [History] Latanoprost [Latanoprost 0.005%] 1 drop LEFT EYE HS 04/19/23 [History] Apixaban [Eliquis] 5 mg PO BID #60 tab 04/20/23 [Rx] Famotidine [Pepcid] 20 mg PO BID #60 tab 04/20/23 [Rx] Metoprolol Tartrate [Lopressor] 25 mg PO BID #60 tab 04/20/23 [Rx] Follow up Appointment(s)/Referral(s): Denae Garay MD [STAFF PHYSICIAN] - 1 Week Tejas Hoffmann MD [Primary Care Provider] - 1-2 days Activity/Diet/Wound Care/Special Instructions: Please call [facility] pharmacy prior to discharge for leos check on Eliquis Discharge Disposition: HOME SELF-CARE
--- NOTE | 2023-04-21 07:13 | CA ---
Transthoracic Echo Report Name: Bruna Joy Age: 72 Gender: F : 1950 Exam Date: 04/20/2023 12:55 Exam Location: [facility] Ht (in): 66 Wt (lb): 179 Ordering Physician: Carlos Yanes MD Attending/Referring Phys: Employee Development Specialist [place] Procedure CPT: Indications: atrial fibrillation Cardiac Hx: Technical Quality: Fair Contrast 1: Total Dose (mL): Contrast 2: Total Dose (mL): MEASUREMENTS (Male / Female) Normal Values 2D ECHO LV Diastolic Diameter PLAX 4.5 cm 4.2 - 5.9 / 3.9 - 5.3 cm LV Systolic Diameter PLAX 2.8 cm IVS Diastolic Thickness 0.8 cm 0.6 - 1.0 / 0.6 - 0.9 cm LVPW Diastolic Thickness 0.8 cm 0.6 - 1.0 / 0.6 - 0.9 cm LV Relative Wall Thickness 0.4 RV Internal Dim ED PLAX 2.4 cm LVOT Diameter 2.1 cm Aortic Root Diameter 3.0 cm LA Systolic Diameter LX 2.1 cm 3.0 - 4.0 / 2.7 - 3.8 cm LV Diastolic Volume MOD BP 61.0 cm??? 67 - 155 / 56 - 104 cm??? LV Systolic Volume MOD BP 22.4 cm??? 22 - 58 / 19 - 49 cm??? LV Ejection Fraction MOD BP 63.3 % >= 55 % LV Diastolic Volume MOD 4C 60.5 cm??? LV Systolic Volume MOD 4C 19.6 cm??? LV Ejection Fraction MOD 4C 67.7 % LV Diastolic Length 4C 7.0 cm LV Systolic Length 4C 5.6 cm LV Diastolic Volume MOD 2C 59.5 cm??? LV Systolic Volume MOD 2C 22.9 cm??? LV Ejection Fraction MOD 2C 61.5 % LV Diastolic Length 2C 6.8 cm LV Systolic Length 2C 6.2 cm LA Volume 47.4 cm??? 18 - 58 / 22 - 52 cm??? DOPPLER AV Peak Velocity 132.5 cm/s AV Peak Gradient 7.0 mmHg LVOT Peak Velocity 114.7 cm/s LVOT Peak Gradient 5.3 mmHg AV Area Cont Eq pk 2.9 cm??? Mitral E Point Velocity 95.9 cm/s Mitral A Point Velocity 110.4 cm/s Mitral E to A Ratio 0.9 MV Deceleration Time 389.2 ms MV E' Velocity 7.6 cm/s Mitral E to MV E' Ratio 12.7 TR Peak Velocity 280.2 cm/s TR Peak Gradient 31.4 mmHg Right Ventricular Systolic Press 36.4 mmHg PV Peak Velocity 110.1 cm/s PV Peak Gradient 4.8 mmHg FINDINGS Left Ventricle Left ventricular ejection fraction is estimated at 55-60 %.left ventricular cavity size normal. Normal left ventricular wall motion. Normal left ventricular diastolic filling pattern. Right Ventricle Normal right ventricular size. RVSP- 36 mmhg. Right Atrium Normal right atrial size. Left Atrium Normal left atrial size. Mitral Valve Structurally normal mitral valve. Mild MR.mitral annular calcification. Aortic Valve Trileaflet aortic valve. No aortic valve stenosis or regurgitation. Tricuspid Valve Structurally normal tricuspid valve. Mild TR. Pulmonic Valve Pulmonic valve not well visualized. No pulmonic regurgitation. Pericardium Normal pericardium. Aorta Normal size aortic root and proximal ascending aorta. CONCLUSIONS 1. Normal left ventricle size and systolic function 2. Mild mitral and tricuspid regurgitation with mild pulmonary hypertension Previewed by: Dr. Denae Garay MD (Electronically Signed) Final Date: 21 April 2023 07:12
== END 2023-04-20 14:12 | disposition home or self-care (01) ==
LOC: EC 09:15 → 6NMEDSUR 12:43
PROVIDERS: ADMIT Internal Medicine; ATTEND Internal Medicine
DX: I48.92 Unspecified atrial flutter (principal); I48.0 Paroxysmal atrial fibrillation; I44.0 Atrioventricular block, first degree; R74.01 Elevation of levels of liver transaminase levels; R74.8 Abnormal levels of other serum enzymes; I10 Essential (primary) hypertension; H26.9 Unspecified cataract; H35.30 Unspecified macular degeneration; H40.9 Unspecified glaucoma; H18.513 Endothelial corneal dystrophy, bilateral; Z79.899 Other long term (current) drug therapy; Z90.49 Acquired absence of other specified parts of digestive tract; Z90.710 Acquired absence of both cervix and uterus; Z89.422 Acquired absence of other left toe(s); Z98.890 Other specified postprocedural states
CPT/HCPCS: 96366 ×3; 96376; 96365; 99285; 36415; 93005; 93306; 80053; 84443; 83735; 84484; 85025 ×2; 85610 ×2; 85730 ×2; 71046; G0378 ×2; J1644 ×2

== ENCOUNTER → 2023-06-10 | Outpatient (CLI) | payer MEDICARE ==
[2023-06-10 12:18] LABS: HGB 13.3 d/dL (12.0-15.0); MCH 30.3 pg (27.0-32.0); MCHC 32.4 d/dL (32.0-37.0); MCV 93.4 FL (80.0-97.0); Mean Platelet Volume 10.2 FL (9.5-12.2); NRBC Per 100 WBC 0 X 10*3/uL (0.00-0.01); Platelet Count 240 X 10*3/uL (140-440); RBC 4.39 X 10*6/uL (4.10-5.20); RDW 14.9 % (11.5-14.5); WBC 5.54 X 10*3/uL (4.50-10.00)
[2023-06-10 14:04] LABS: Blood Urea Nitrogen 14.5 mg/dL (9.0-27.0)
[2023-06-10 14:05] LABS: Carbon Dioxide 26.8 mmol/L (21.6-31.8); Chloride 104 mmol/L (96-109); Potassium 5.4 mmol/L (3.5-5.5); Sodium 141 mmol/L (135-145)
== END | disposition home or self-care (01) ==
LOC: LABPAT 06:55
PROVIDERS: ATTEND Internal Medicine Interventional Cardiology
DX: Z01.812 Encounter for preprocedural laboratory examination (principal); R94.39 Abnormal result of other cardiovascular function study
CPT/HCPCS: 36415; 80051; 82565; 84520; 85027

== ENCOUNTER 2023-06-18 06:03 | Day surgery (SDC) | payer MEDICARE ==
[~2023-06-18 06:03] MED LIST changes: +ALPRAZolam 0.25 MG TAB PO PRN; +ALPRAZolam 0.5 MG TAB PO PRN; +ASPIRIN 325 MG TAB PO STA; +ATORVASTATIN 80 MG TAB PO STA; +HEPARIN SODIUM,PORCINE (1 ML) 2,500 UNIT in SODIUM CHLORIDE 0.9% 250 ML IRRIGATION PRN; +HEPARIN SODIUM,PORCINE 10,000 UNIT in SODIUM CHLORIDE 0.9% 1,000 ML IRRIGATION PRN; -LACTATED RINGERS 1,000 ML IV SCH; -LIDOCAINE 1% 20 ML VIAL (10MG/ML) FOR IV START INTRADERMA PRN; -MOXIFLOXACIN HCL 0.5% DROPS 3 ML BTL OP ONE; +NITROGLYCERIN SL TABS 0.4 MG TAB SUBLINGUAL PRN; -ONDANSETRON 4 MG/2 ML VIAL IVP ONE; +SODIUM CHLORIDE 0.9% 1,000 ML in EMPTY BAG 1 BAG IV SCH; -TETRACAINE 0.5% OPHTH (PF) DROPS 4 ML BTL OP ONE; -TIMOLOL 0.5% OPHTH DROPS 5 ML BTL OP ONE
[2023-06-18 06:24] VITALS: RESP 18; TEMP 97.2
[2023-06-18] MEDS ORDERED: VERAPAMIL 2.5 MG/ML 2 ML AMP ONE (07:26)
[2023-06-18] MEDS ORDERED: fentaNYL (PF) 50 MCG/ML 2 ML AMP ONE (07:26)
[2023-06-18] MEDS ORDERED: HEPARIN SODIUM 1,000 UN/ML (10ML VL) ONE (07:26)
[2023-06-18] MEDS ORDERED: LIDOCAINE 1% INJ 10MG/ML (20 ML MDV) ONE (07:26)
[2023-06-18] MEDS ORDERED: fentaNYL (PF) 50 MCG/ML 2 ML AMP IVP ONE (07:34)
[2023-06-18] MEDS ORDERED: LIDOCAINE 1% INJ 10MG/ML (5 ML VIAL-PF) SQ ONE (07:36)
[2023-06-18] MEDS ORDERED: VERAPAMIL SYRINGE (5 MG/10 ML) INTRAARTER ONE (07:37)
[2023-06-18] MEDS ORDERED: HEPARIN SODIUM 1,000 UN/ML (10ML VL) IV ONE (07:42)
[2023-06-18] MEDS ORDERED: IOPAMIDOL-370 200ML BTL INJ ONE (07:47)
[2023-06-18] MEDS ORDERED: RX INFO: IV CONTRAST WAS GIVEN 1 EACH MISC MISCELLANE PRN (07:58)
[2023-06-18] MEDS ORDERED: SODIUM CHLORIDE 0.9% 1,000 ML IV SCH (08:00)
--- NOTE | 2023-06-18 08:04 | P.CARDCATH ---
Date of Procedure: 06/18/23 Description of Procedure: Cardiac Catheterization: The patient is a 73-year-old female with a known history of hypertension, paroxysmal atrial fibrillation who had episodes of dyspnea and chest discomfort, underwent an MPI showed evidence of anterior wall ischemia. Recommendations were made regarding cardiac catheterization, the risks and the complications were discussed with the patient who is in full understanding and agreement. Procedure Description: Patient was brought to labview programmer in fasting semi-sedated state after receiving Fentanyl and Benadryl achieiving moderate conscious sedated state. Using Xylocaine Anesthesia and Seldinger technique, a 6-[place] sheath was introduced in the right radial artery . Subsequently, selective coronary angiography was performed using a 5-[place] 3.5 bend Adarsh catheter. Multiple views of the coronary artery including hemiaxial views were obtained. The right Adarsh catheter was used to cross the aortic valve and LVEDP was calculated. Following that, catheter and sheath were removed. Hemostasis was obtained with deployment of TR band . There was no i mmediate complication. Patient was returned to room in stable condition. Of note, the patient received a total of 4500 units of intravenous heparin as well as intra-arterial verapamil. Findings: Left main: This is a large-size vessel trifurcating into LAD, left circumflex and ramus intermedius, left main has no obstructive disease LAD: This is a large-size vessel, reaching to the apex, giving rise to a proximal diagonal branch. The LAD is tortuous in the midsegment. He has no obstructive disease Left circumflex: This is a nondominant vessel, giving rise to one obtuse marginal branch that has no obstructive disease RCA: This is a dominant vessel, tortuous, bifurcating to PDA and a small PLV, the RCA has no obstructive disease Ramus intermedius: The ramus intermedius is a large-size vessel that has no evidence of obstructive disease Left Ventriculogram: Not performed Hemodynamics: There was no gradient across the aortic valve, LVEDP was 12-16 mmHg Conclusion: 1. No evidence of obstructive coronary disease 2. Right dominance 3. Normal LVEDP Recommendations: I have recommended to continue present medical regimen and continue anticoagulation. The findings and the recommendations were discussed with the patient and the family and they were in full understanding and agreement. Duration of sedation is 12 minutes.
[2023-06-18] MEDS ORDERED: METOPROLOL TARTRATE 50 MG TAB PO SCH (09:00)
[2023-06-18] MEDS ORDERED: MULTIVITAMINS, THERA 1 EACH TAB PO SCH (09:00)
[2023-06-18 11:09] VITALS: BP 134/68; PULSE 56
[2023-06-18] MEDS ORDERED: LATANOPROST 0.005% OPHTH DROPS 2.5 ML BTL BOTH EYES SCH (21:00)
[2023-06-19] MEDS ORDERED: amLODIPine 5 MG TAB PO SCH (09:00)
== END 2023-06-18 11:54 | disposition home or self-care (01) ==
LOC: CATHCVL 06:03
PROVIDERS: ATTEND Internal Medicine Interventional Cardiology
DX: I48.0 Paroxysmal atrial fibrillation (principal); I10 Essential (primary) hypertension; F17.210 Nicotine dependence, cigarettes, uncomplicated; Z79.01 Long term (current) use of anticoagulants; Z79.899 Other long term (current) drug therapy
CPT/HCPCS: 93458; C1769 ×2; C1894; J2001; J3010; J1644; Q9967

== ENCOUNTER → 2024-02-15 | Outpatient (CLI) | payer MEDICARE ==
--- NOTE | 2024-02-16 15:15 | MM ---
Reason for Exam: Screening (asymptomatic). Last mammogram was performed 1 year(s) and 1 month(s) ago. Patient History: Menarche at age 12. First Full-Term at age 25. Hysterectomy at age 65. Postmenopausal. Risk Values: Mendy 5 year model risk: 2.0%. NCI Lifetime model risk: 4.5%. Prior Study Comparison: 10/09/2020 Bilateral Screening Mammogram, [facility]. 01/13/2022 Bilateral Screening Mammogram, [facility]. 02/01/2023 Bilateral MG 3D screening mammo w/cad, [facility]. Tissue Density: There are scattered areas of fibroglandular density. Findings: Analyzed By CAD. There is no suspicious group of microcalcifications or new suspicious mass in either breast. Overall Assessment: Negative, BI-RAD 1 Management: Screening Mammogram of both breasts in 1 year. . Patient should continue monthly self-breast exams. A clinical breast exam by your physician is recommended on an annual basis. This exam should not preclude additional follow-up of suspicious palpable abnormalities. Note on Mendy scores and lifetime risk: 1. A Mendy score greater than 3% is considered moderate risk. If this is the case, consider specialist referral to assess eligibility for a risk reducing agent. 2. If overall lifetime risk for the development of breast cancer is 20% or higher, the patient may qualify for future screening with alternating mammogram and breast MRI. Electronically signed and approved by: Mustapha Wheeler M.D. Radiologis
== END | disposition home or self-care (01) ==
LOC: RADMAMWWP 07:11
PROVIDERS: ATTEND Internal Medicine Geriatric Medicine
DX: Z12.31 Encounter for screening mammogram for malignant neoplasm of breast (principal); Z78.0 Asymptomatic menopausal state
CPT/HCPCS: 77063; 77067

== ENCOUNTER → 2024-04-14 | Outpatient (CLI) | payer MEDICARE ==
--- NOTE | 2024-04-15 07:43 | MR ---
EXAMINATION TYPE: MR lumbar spine wo con DATE OF EXAM: 04/14/2024 3:49 PM CLINICAL INDICATION:Female, 73 years old with history of M48.00 SPINAL STENOSIS, SITE UNSPECIFIED; PH H, Low back pain that radiates down right leg. COMPARISON: None TECHNIQUE: Multi planar, multi sequence imaging was performed utilizing: T1-weighted, T2-weighted, a nd turbo inversion recovery imaging of the lumbar spine. IV Contrast: cc . (None if empty) FINDINGS: Alignment: The lumbar vertebral bodies have preserved heights with grade 1 anterolisthesis of L4 on L 5. Cord: The conus medullaris and the distal spinal cord appear unremarkable with regards to their signa l intensity and morphology. Bones/Discs: Multilevel disc degeneration changes with osteophyte formation, disc space narrowing, an d facet joint arthropathy. No abnormal inversion recovery signal to suggest bony edema. Multilevel di sc desiccation is present. T12-L1: No evidence of significant spinal canal stenosis or neural foraminal stenosis. L1-L2: No evidence of significant spinal canal stenosis or neural foraminal stenosis. L2-L3: Disc bulge and facet joint arthropathy result in mild spinal canal and mild bilateral neural f oraminal stenosis. L3-L4: Disc bulge and facet joint arthropathy result in mild spinal canal and mild bilateral neural f oraminal stenosis. L4-L5: Disc uncovering from grade 1 anterolisthesis and facet joint arthropathy with moderate spinal canal stenosis and moderate right and moderate to severe left bilateral neural foraminal stenosis. L5-S1: The disc has a rounded posterior morphology without significant spinal canal stenosis. Facet j oint arthropathy with moderate to severe bilateral neural foraminal stenosis. No significant spinal canal or neural foraminal stenosis in the remainder of the visualized levels. Other findings: None. IMPRESSION: 1. No definitive evidence of disc herniation or significant spinal canal stenosis. 2. Grade 1 anterolisthesis of L4 and L5 with moderate marked severe left neural foraminal stenosis a nd . 3. Multilevel degeneration changes of the spine are mild to moderate. No femoral stenosis at L5-S1 w ith moderate to severe bilateral.
== END | disposition home or self-care (01) ==
LOC: RADMRIMAIN 14:20
PROVIDERS: ATTEND Internal Medicine Geriatric Medicine
DX: M48.061 Spinal stenosis, lumbar region without neurogenic claudication (principal); M43.16 Spondylolisthesis, lumbar region; M51.36 Other intervertebral disc degeneration, lumbar region
CPT/HCPCS: 72148

== ENCOUNTER → 2025-02-15 | Outpatient (CLI) | payer MEDICARE ==
--- NOTE | 2025-02-15 12:36 | MM ---
Reason for Exam: Screening (asymptomatic). Last screening mammogram was performed 12 month(s) ago. Patient History: Menarche at age 12. First Full-Term at age 25. Hysterectomy at age 65. Postmenopausal. Risk Values: Mendy 5 year model risk: 2.0%. NCI Lifetime model risk: 4.2%. Prior Study Comparison: 01/13/2022 Bilateral Screening Mammogram, [facility]. 02/01/2023 Bilateral MG 3D screening mammo w/cad, [facility]. 02/15/2024 Bilateral MG 3D screening mammo w/cad, [facility]. Tissue Density: The breasts are heterogeneously dense, which may obscure small masses. Findings: Analyzed By CAD. There is no suspicious group of microcalcifications or new suspicious mass in either breast. Overall Assessment: Negative, BI-RAD 1 Management: Screening Mammogram of both breasts in 1 year. Patient should continue monthly self-breast exams. A clinical breast exam by your physician is recommended on an annual basis. This exam should not preclude additional follow-up of suspicious palpable abnormalities. Note on Mendy scores and lifetime risk: 1. A Mendy score greater than 3% is considered moderate risk. If this is the case, consider specialist referral to assess eligibility for a risk reducing agent. 2. If overall lifetime risk for the development of breast cancer is 20% or higher, the patient may qualify for future screening with alternating mammogram and breast MRI. [facility], , 02/15/2025 12:34 PM. Electronically signed and approved by: Oliver Pena M.D. Radiologist
== END | disposition home or self-care (01) ==
LOC: RADMAMWWP 07:09
PROVIDERS: ATTEND Internal Medicine Geriatric Medicine
DX: Z12.31 Encounter for screening mammogram for malignant neoplasm of breast (principal); R92.333 Mammographic heterogeneous density, bilateral breasts; Z78.0 Asymptomatic menopausal state
CPT/HCPCS: 77063; 77067